=== PATIENT | male | born 1935 | race African-American/Black ===

== ENCOUNTER 2019-02-09 12:06 | Emergency (ER) | payer MEDICARE ==
[~2019-02-09] VITALS: Ht 188 cm; Wt 79.0 kg
[2019-02-09 15:32] VITALS: BP 129/68
== END 2019-02-09 15:33 | disposition home or self-care (01) ==
LOC: ER 12:06
DX: B85.2 Pediculosis, unspecified (principal); S00.96XA Insect bite (nonvenomous) of unspecified part of head, initial encounter; J44.9 Chronic obstructive pulmonary disease, unspecified; F03.90 Unspecified dementia, unspecified severity, without behavioral disturbance, psychotic disturbance, mood disturbance, and anxiety; K21.9 Gastro-esophageal reflux disease without esophagitis; H40.9 Unspecified glaucoma; I10 Essential (primary) hypertension; F17.200 Nicotine dependence, unspecified, uncomplicated; W57.XXXA Bitten or stung by nonvenomous insect and other nonvenomous arthropods, initial encounter; Y93.9 Activity, unspecified; Y92.129 Unspecified place in nursing home as the place of occurrence of the external cause
CPT/HCPCS: 99282

== ENCOUNTER 2022-03-12 04:59 | Emergency (ER) | payer MEDICARE, MEDICAID ==
[~2022-03-12] VITALS: Ht 177.8 cm; Wt 78.0 kg
[2022-03-12] MEDS ORDERED: PIPERACILLIN/TAZ 3.375G PREMIX 50 ML IV ONE (06:00)
[2022-03-12] MEDS ORDERED: SODIUM CHLORIDE 0.9% 1,000 ML IV ONE (06:00)
[2022-03-12] MEDS ORDERED: VANCOMYCIN 1G PREMIX 200 ML IV ONE (06:00)
[2022-03-12] MEDS ORDERED: SODIUM CHLORIDE 0.9% 1000ML BAG (SEPSIS BOLUS) IV ONE (06:00)
[2022-03-12] MEDS ORDERED: EPINEPHRINE 5 MG in SODIUM CHLORIDE 0.9% 245 ML IV STA (06:06)
[2022-03-12] MEDS ORDERED: NOREPINEPHRINE 8MG/250ML PMX 250 ML IV STA (06:06)
[2022-03-12] MEDS ORDERED: EPINEPHRINE 5 MG in SODIUM CHLORIDE 0.9% 245 ML IV PRN (06:15)
[2022-03-12 06:54] LABS: HEMATOCRIT. 25.4 % (42.0-52.0); HEMOGLOBIN. 7.7 g/dL (14.0-18.0); MEAN CORPUSCULAR HEMOGLOBIN 26.3 pg (28.0-32.0); MEAN CORPUSCULAR VOLUME 86.2 fL (80.0-94.0); MEAN PLATELET VOLUME 9.5 fl (7.4-10.4); PLATELET 136 x1000/uL (130-400); RED BLOOD CELL COUNT 2.94 mill/uL (4.7-6.1)
[2022-03-12 07:03] LABS: CHLORIDE 125 mEq/L (98-107)
[2022-03-12 07:20] LABS: PLATELET ESTIMATE NORMAL
[2022-03-12] MEDS ORDERED: ACETAMINOPHEN 325MG TABLET PO PRN (07:30)
[2022-03-12] MEDS ORDERED: HYDROCODONE/ACETAMINOPHEN 5/325MG TABLET PO PRN (07:30)
[2022-03-12] MEDS ORDERED: DOCUSATE SODIUM 100MG CAPSULE PO PRN (07:30)
[2022-03-12] MEDS ORDERED: CLONIDINE 0.1MG TABLET PO PRN (07:30)
[2022-03-12] MEDS ORDERED: LORAZEPAM 2MG/ML CPJ IV PRN (07:30)
[2022-03-12] MEDS ORDERED: MORPHINE SULFATE 2 MG/ML CPJ (NOT FOR IM USE) IV PRN (07:30)
[2022-03-12] MEDS ORDERED: PIPERACILLIN/TAZ 3.375G PREMIX 50 ML IV SCH ×2 (07:30→14:00)
[2022-03-12] MEDS ORDERED: IPRATROPIUM/ALBUTEROL 0.5-3(2.5)MG/3ML NEB HHN PRN (07:30)
[2022-03-12] MEDS ORDERED: DIPHENHYDRAMINE 50MG/ML VIAL IV PRN (07:30)
[2022-03-12] MEDS ORDERED: HYDRALAZINE 20MG/ML VIAL IV PRN (07:30)
[2022-03-12] MEDS ORDERED: GUAIFENESIN 200MG/10ML SUGAR FREE UDC PO PRN (07:30)
[2022-03-12] MEDS ORDERED: ONDANSETRON HCL 4MG/2ML INJ IV PRN (07:30)
[2022-03-12] MEDS ORDERED: MAGNESIUM/ALUMINUM HYDROXIDE/SIMETHICONE 30ML UDC PO PRN (07:30)
[2022-03-12 07:40] VITALS: BP 137/74
[2022-03-12] MEDS ORDERED: NALOXONE HCL 0.4MG/ML VIAL IV PRN (07:45)
[2022-03-12] MEDS ORDERED: DEXTROSE 50% WATER 50ML SYRINGE IV ONE (12:23)
[2022-03-12] MEDS ORDERED: SODIUM BICARBONATE 8.4% 1 MEQ/ML 50ML SYR IV ONE (12:23)
[2022-03-12] MEDS ORDERED: EPINEPHRINE 0.1MG/ML (1:10,000) 10ML SYR ONE (12:23)
[2022-03-12] MEDS ORDERED: CALCIUM CHLORIDE 1GM/10ML SYR IV ONE (12:23)
[2022-03-12] MEDS ORDERED: NALOXONE HCL 0.4 MG/ML 1ML VIAL ONE (12:23)
[2022-03-12] MEDS ORDERED: SODIUM CHLORIDE 0.9% INJ 3ML FLUSH IVF SCH (14:00)
[2022-03-12] MEDS ORDERED: PIPERACILLIN/TAZOBACTAM 3.375G in DEXT 5% WATER 50ML IV SCH (22:00)
== END 2022-03-12 07:59 ==
LOC: ER 04:59 → CANBEDREQ 16:41
DX: J96.00 Acute respiratory failure, unspecified whether with hypoxia or hypercapnia (principal); J18.9 Pneumonia, unspecified organism; A41.9 Sepsis, unspecified organism; G93.40 Encephalopathy, unspecified; I46.9 Cardiac arrest, cause unspecified; E87.6 Hypokalemia; J44.9 Chronic obstructive pulmonary disease, unspecified; F03.90 Unspecified dementia, unspecified severity, without behavioral disturbance, psychotic disturbance, mood disturbance, and anxiety; K21.9 Gastro-esophageal reflux disease without esophagitis; H40.9 Unspecified glaucoma; I10 Essential (primary) hypertension
CPT/HCPCS: 31500; 36415; 36556; 71045; 80053; 82962; 83605; 83880; 84145; 84484; 85025; 87040; 92950; 94003; 96365; 99291; J2310; J2543; J3490; J7030; J7050